=== PATIENT | male | born 1980 | race Caucasian/White ===

== ENCOUNTER → 2019-07-10 09:35 | Outpatient (CLI) | payer OTHER, SELFPAY ==
--- NOTE | 2019-07-10 | DI.RAD.S_ITS ---
PROCEDURE: XR HIP W PEL IF DONE BILAT 2V INDICATIONS: BILATERAL HIP PAIN/NECK PAIN TECHNIQUE: AP pelvis with lateral view(s) of the left and right hip(s). COMPARISON: [facility], CR, XR HIP 2 VIEWS RIGHT, 06/08/2019, 9:11. FINDINGS: Bones: No fractures or dislocations. Scattered degenerative subchondral sclerosis and spurring. Pelvic ring appears intact. No suspicious bony lesions. No definite joint space narrowing. Soft tissues: The visualized bowel gas pattern is normal. No suspicious soft tissue calcifications. IMPRESSION: Minimal bilateral hip degenerative subchondral sclerosis and spurring. Dictated by: Noah Chambers M.D. on 07/10/2019 at 11:10 Approved by: Noah Chambers M.D. on 07/10/2019 at 11:14
--- NOTE | 2019-07-10 | DI.RAD.S_ITS ---
PROCEDURE: XR CERVICAL SPINE 2V OR 3V INDICATIONS: BILATERAL HIP PAIN/NECK PAIN TECHNIQUE: 3 view(s) of the cervical spine were acquired. COMPARISON: None. FINDINGS: Bones: No fractures or dislocations to the C7 level. The lateral masses of C1 appear intact on the odontoid view. No suspicious bony lesions. Mild endplate spurring. Mild narrowing of the C7-T1 disc space. Elsewhere, no definite disc space narrowing. There is levocurvature, mild Soft tissues: No prevertebral soft tissue swelling. IMPRESSION: Mild levocurvature Mild C7-T1 disc degeneration. Minimal cervical spondylosis Dictated by: Noah Chambers M.D. on 07/10/2019 at 11:14 Approved by: Noah Chambers M.D. on 07/10/2019 at 11:16
== END ==
PROVIDERS: PCP Nurse Practitioner
DX: M25.551 Pain in right hip (principal); M25.552 Pain in left hip; M50.33 Other cervical disc degeneration, cervicothoracic region
CPT/HCPCS: 72040; 73521